=== PATIENT | female | born 1970 | race Two or more races ===

== ENCOUNTER 2020-07-12 12:32 | Outpatient (CLI) | payer OTHER ==
[2020-07-12] MEDS ORDERED: MULTIPLE VITAM1 EACH PO (14:07)
== END 2020-07-12 12:38 | disposition home or self-care (01) ==
LOC: RAD 12:32
DX: M99.01 Segmental and somatic dysfunction of cervical region (principal); M99.02 Segmental and somatic dysfunction of thoracic region; M99.03 Segmental and somatic dysfunction of lumbar region; M99.04 Segmental and somatic dysfunction of sacral region; M99.05 Segmental and somatic dysfunction of pelvic region

== ENCOUNTER 2020-07-18 06:20 | Day surgery (SDC) | payer OTHER ==
[~2020-07-18 06:20] MED LIST: MULTIPLE VITAM1 EACH PO
[2020-07-18] MEDS ORDERED: MEFENAMIC ACID250 MG PO (12:45)
[2020-07-18] MEDS ORDERED: NASAL MIST126 ML NASAL (12:45)
== END 2020-07-18 17:45 | disposition home or self-care (01) ==
LOC: CIR.AMB 06:20
PROVIDERS: ATTEND Obstetrics & Gynecology
DX: D25.0 Submucous leiomyoma of uterus (principal); Z30.432 Encounter for removal of intrauterine contraceptive device